=== PATIENT | female | born 1970 | race Caucasian/White ===

== ENCOUNTER 2018-05-09 09:04 | Emergency (ER) | payer OTHER ==
--- NOTE | 2018-05-09 09:22 | EDPHY ---
H & P Stated Complaint: Diagnosed with norovirus and sent for "admission" Time Seen by Provider: 05/09/18 09:22 HPI/ROS: CHIEF COMPLAINT: "I have got norovirus" HISTORY OF PRESENT ILLNESS: 48-year-old female generally healthy with no history of international travel, no antibiotic use, no untreated water sources, complaining of 5 days of diarrhea, nausea. Had stool study performed which resulted in positive norovirus resulted this morning, told to come to the hospital by primary care provider for hydration. She is able tolerate oral intake but notes that shortly after drinking she has an episode of diarrhea. Family members are not sick. PRIMARY CARE PROVIDER: REVIEW OF SYSTEMS: 10 systems reviewed and negative with the exception of the elements mentioned in the history of present illness PAST MEDICAL & SURGICAL HISTORY: . Otherwise no abdominal surgeries SOCIAL HISTORY: with children PHYSICAL EXAM (Prior to examination, patient consented to physical exam, hands were washed and my usual and customary physical exam procedures followed) 1) GENERAL: Well-developed, well-nourished, alert and oriented. Appears to be in no acute distress. 2) HEAD: Normocephalic, atraumatic 3) HEENT: Pupils equal, round, reactive to light bilaterally. Sclera anicteric. Nasopharynx, oropharynx, clear, no lesions. Dry mucous membranes. 4) NECK: Full range of motion, no meningeal signs. 5) LUNGS: Clear auscultation bilaterally, no wheezes, no rhonchi, no retractions. 6) HEART: Regular rate and rhythm, no murmur, no heave, no gallop. 7) ABDOMEN: No guarding, no rebound, no focal tenderness, negative McBurney's, negative Lewis's, negative Rovsing's, negative peritoneal sign, unable to elicit any abdominal pain 8) MUSCULOSKELETAL: Moving all extremities, no focal areas of tenderness, no obvious trauma. No peripheral edema or discoloration. 9) BACK: No CVA tenderness, no midline vertebral tenderness, no fluctuance, no step-off, no obvious trauma, no visual or palpable abnormality. 10) SKIN: No rash, no petechiae. 11) Psychiatric: Patient is oriented X 3, there is no agitation. DIFFERENTIAL DIAGNOSIS: My differential diagnosis includes, but is not limited to, acute appendicitis, acute cholecystitis, bowel obstruction, acute pancreatitis, ovarian torsion, ectopic , gastritis and urinary tract infection. The patient understands that this diagnosis is provisional and can never be 100% accurate. This is a partial list of diagnoses considered. These considerations are based on history, physical exam, past history and reassessment. - Personal History LMP (Females 10-55): 22-28 Days Ago Tetanus Vaccine Date: 06/12/14 - Medical/Surgical History Hx Asthma: No Hx Chronic Respiratory Disease: No Hx Diabetes: No Hx Cardiac Disease: No Hx Renal Disease: No Hx Cirrhosis: No Hx Alcoholism: No Hx HIV/AIDS: No Hx Splenectomy or Spleen Trauma: No Other PMH: L KNEE SURGERY - Social History Smoking Status: Never smoked Constitutional: Initial Vital Signs Temperature (C) 36.5 C 05/09/18 09:07 Heart Rate 97 05/09/18 09:07 Respiratory Rate 18 05/09/18 09:07 Blood Pressure 112/78 05/09/18 09:07 O2 Sat (%) 98 05/09/18 09:07 Allergies/Adverse Reactions: Penicillins Allergy (Verified 06/12/14 12:51) Hives Home Medications: Medication Instructions Recorded Hydrocodone/APAP 5/325 [Max[place]el[place] 1 tab PO Q6 PRN #7 tab 05/09/18 5/325 (RX)] Medical Decision Making ED Course/Re-evaluation: 11:18 a.m.: Patient re-evaluated with serial exams. She has been given small dose of morphine which has assisted her abdominal cramping. She has been given IV hydration in the ER. At This time she is sleeping, resting comfortably states that she is feeling well. At this time I do not think that hospitalization is indicated as she is able to tolerate oral intake. I stressed the importance of continued hydration. Given a small prescription for Maxwelton. We discussed handwashing precautions for her and her family members. I think that acute surgical abdominal pathology less than likely. I Do not think that imaging studies indicated at this time. She feels comfortable being discharged. Care of patient under supervision of secondary supervising physician Dr Guzman with whom I discussed case. - Data Points Laboratory Results: Laboratory Results 05/09/18 09:32 05/09/18 09:32 12/05/1505/09/18 05/09/18 09:32 09:32 09:32 WBC 10.00 10^3/uL H 10^3/uL (3.80-9.50) RBC 5.14 10^6/uL 10^6/uL (4.18-5.33) Hgb 15.6 g/dL g/dL (12.6-16.3) Hct 45.1 % % (38.0-47.0) MCV 87.7 fL fL (81.5-99.8) MCH 30.4 pg pg (27.9-34.1) MCHC 34.6 g/dL g/dL (32.4-36.7) RDW 12.5 % % (11.5-15.2) Plt Count 225 10^3/uL 10^3/uL (150-400) MPV 10.0 fL fL (8.7-11.7) Neut % (Auto) 72.4 % % (39.3-74.2) Lymph % (Auto) 18.1 % % (15.0-45.0) Glynn % (Auto) 7.3 % % (4.5-13.0) Eos % (Auto) 1.5 % % (0.6-7.6) Baso % (Auto) 0.2 % L % (0.3-1.7) Nucleat RBC Rel Count 0.0 % % (0.0-0.2) Absolute Neuts (auto) 7.24 10^3/uL H 10^3/uL (1.70-6.50) Absolute Lymphs (auto) 1.81 10^3/uL 10^3/uL (1.00-3.00) Absolute Monos (auto) 0.73 10^3/uL 10^3/uL (0.30-0.80) Absolute Eos (auto) 0.15 10^3/uL 10^3/uL (0.03-0.40) Absolute Basos (auto) 0.02 10^3/uL 10^3/uL (0.02-0.10) Absolute Nucleated RBC 0.00 10^3/uL 10^3/uL (0-0.01) Immature Gran % 0.5 % % (0.0-1.1) Immature Gran # 0.05 10^3/uL 10^3/uL (0.00-0.10) RBC/WBC/PLT Morphology TNP Atypical Lymphocytes 1+ H Platelet Estimate ADEQUATE (ADEQ) Echinocytes 1+ H Sodium 137 mEq/L mEq/L (135-145) Potassium 4.1 mEq/L mEq/L (3.5-5.2) Chloride 105 mEq/L mEq/L (97-110) Carbon Dioxide 19 mEq/l L mEq/l (22-31) Anion Gap 13 mEq/L mEq/L (6-14) BUN 6 mg/dL L mg/dL (7-23) Creatinine 0.8 mg/dL mg/dL (0.6-1.0) Estimated GFR > 60 Glucose 108 mg/dL H mg/dL (70-100) Calcium 9.3 mg/dL mg/dL (8.5-10.4) Total Bilirubin 0.6 mg/dL mg/dL (0.1-1.4) Conjugated Bilirubin 0.1 mg/dL mg/dL (0.0-0.5) Unconjugated Bilirubin 0.5 mg/dL mg/dL (0.0-1.1) AST 28 IU/L IU/L (14-46) ALT 30 IU/L IU/L (9-52) Alkaline Phosphatase 50 IU/L IU/L (38-126) Total Protein 7.6 g/dL g/dL (6.3-8.2) Albumin 4.6 g/dL g/dL (3.5-5.0) Lipase 172 IU/L IU/L (23-300) Beta HCG, Qual NEGATIVE Medications Given: Discontinued Medications Sodium Chloride (Ns) 2,000 mls @ 0 mls/hr IV ONCE ONE PRN Reason: Wide Open Stop: 05/09/18 09:35 Last Admin: 05/09/18 09:40 Dose: 2,000 mls Morphine Sulfate (Morphine) 4 mg IVP EDNOW ONE Stop: 05/09/18 09:35 Last Admin: 05/09/18 09:40 Dose: 4 mg Ondansetron HCl (Zofran) 4 mg IVP EDNOW ONE Stop: 05/09/18 09:45 Last Admin: 05/09/18 09:45 Dose: 4 mg Departure - Departure Disposition: Home, Routine, Self-Care Clinical Impression: Norovirus Condition: Good Instructions: Acute Diarrhea (ED) Additional Instructions: Make sure you and your family members are washing their hands regularly and disinfect common areas. Referrals: Martha Garcia MD [Primary Care Provider] - 1-2 days without fail Prescriptions: Hydrocodone/APAP 5/325 [[place] 5/325 (RX)] 1 tab PO Q6 PRN #7 tab PRN Reason: Pain, Severe
[2018-05-09] MEDS ORDERED: NS 2,000 ML IV ONE (09:34)
[2018-05-09] MEDS ORDERED: ONDANSETRON 4 MG/2 ML VIAL ONE (09:43)
[2018-05-09] MEDS ORDERED: ONDANSETRON 4 MG/2 ML VIAL IVP ONE (09:44)
[2018-05-09 10:15] LABS: PLATELET COUNT 225 10^3/uL (150-400)
[2018-05-09 11:37] VITALS: BP 115/78
== END 2018-05-09 11:47 | disposition home or self-care (01) ==
DX: A08.11 Acute gastroenteropathy due to Norwalk agent (principal); E86.9 Volume depletion, unspecified
CPT/HCPCS: 96374; J2270; J2405